=== PATIENT | male | born 1965 | race Caucasian/White ===

== ENCOUNTER 2019-03-05 07:16 | Emergency (ER) | payer OTHER ==
[~2019-03-05] VITALS: Ht 182.9 cm; Wt 93.0 kg
[2019-03-05 07:24] VITALS: BP 157/94
== END 2019-03-05 07:49 | disposition home or self-care (01) ==
LOC: ER 07:16
DX: Z48.01 Encounter for change or removal of surgical wound dressing (principal); M67.441 Ganglion, right hand

== ENCOUNTER 2019-11-30 00:47 | Inpatient (IN) | payer OTHER ==
[~2019-11-30] VITALS: Ht 180.3 cm; Wt 93.4 kg
[2019-11-30] MEDS ORDERED: ONDANSETRON HCL 4 MG/2 ML VIAL ONE (01:15)
[2019-11-30] MEDS ORDERED: MORPHINE SULFATE 4 MG/ML SYR/VIAL ONE (01:15)
[2019-11-30] MEDS ORDERED: MORPHINE SULF INJ 2 MG/ML SYRINGE 1ML ONE (01:15)
[2019-11-30] MEDS ORDERED: ASPirin-EC 81 mg tab PO ONE (01:16)
[2019-11-30 01:20] LABS: INR 1.06 (0.9-1.15); Partial Thromboplastin Time 24.3 sec (23.0-31.2)
[2019-11-30 01:21] LABS: Basophils # (auto) 0 10 ^3/uL (0-0.2); Basophils % (auto) 0.1 % (0.0-2.0); Eosinophils # (auto) 0 10 ^3/uL (0-0.8); Hematocrit 48.1 % (41.0-53.0); Hemoglobin 16.6 g/dL (13.5-17.5); Lymphocytes # (auto) 1.8 10 ^3/uL (0.4-5.4); Lymphocytes % (auto) 13.2 % (10.0-50.0); Mean Corpuscular Hemoglobin 32.2 pg (28.0-32.0); Mean Corpuscular Hgb Conc. 34.5 g/dL (32.0-36.0); Mean Corpuscular Volume 93.2 fL (80.0-100.0); Monocytes # (auto) 1.7 10 ^3/uL (0-1.3); Monocytes % (auto) 12.5 % (0.0-12.0); Neutrophils % (auto) 74.2 % (37.0-80.0); Nucleated Red Blood Cells % 0.1 %; Platelet Count (auto) 297 10^3/uL (140-450); Red Blood Cells 5.16 10^6/uL (4.5-5.90); Red Cell Distribution Width 12.7 % (11.8-14.3); White Blood Cell 13.4 10^3/uL (4.4-10.8)
[2019-11-30 01:26] LABS: Alanine Aminotransferase 39 U/L (16-61); Albumin 3.9 g/dL (3.4-5.0); Anion Gap 17 (5-15); Aspartate Aminotransferase 40 U/L (15-37); BUN/Creatinine Ratio 8.2; Blood Urea Nitrogen 8 mg/dL (7-18); Calcium 8.6 mg/dL (8.5-10.1); Carbon Dioxide 21 mmol/L (21-32); Chloride 96 mmol/L (98-107); GFR African American 102 mL/min; GFR Non-African American 84 mL/min; Glucose 160 mg/dL (74-106); Potassium 3.6 mmol/L (3.5-5.1); Sodium 134 mmol/L (136-145)
[2019-11-30] MEDS ORDERED: LORazepam 2MG/ML-1ML VIAL IV ONE ×3 (01:30→04:30)
[2019-11-30] MEDS ORDERED: NITROGLYCERIN 0.4MG/HR TOPICAL PATCH TD ONE ×2 (01:30→01:31)
[2019-11-30] MEDS ORDERED: SODIUM CHLORIDE 0.9% 1,000 ML IVB ONE (01:30)
[2019-11-30] MEDS ORDERED: MORPHINE SULFATE 4 MG/ML SYR/VIAL IV ONE (01:30)
[2019-11-30] MEDS ORDERED: ONDANSETRON HCL 4 MG/2 ML VIAL IV ONE ×2 (01:30→03:45)
[2019-11-30 01:31] LABS: Alkaline Phosphatase 36 U/L (45-117); Bilirubin, Total 0.9 mg/dL (0.2-1.0); Total Protein 7.6 g/dL (6.4-8.2)
[2019-11-30 03:38] LABS: Amphetamine Screen, Urine NEGATIVE (NEGATIVE); Barbiturate Scree,Urine NEGATIVE (NEGATIVE); Benzodiazephine Screen, Urine NEGATIVE (NEGATIVE); Cannabinoid Screen, Urine NEGATIVE (NEGATIVE); Cocaine Screen, Urine NEGATIVE (NEGATIVE); Opiate Scree,Urine POSITIVE (NEGATIVE); Phencyclidine Screen, Urine NEGATIVE (NEGATIVE)
[2019-11-30] MEDS ORDERED: NITROGLYCERIN 0.4 MG SL TAB SL PRN (05:45)
[2019-11-30] MEDS ORDERED: DOCUSATE SOD 100 MG CAP PO PRN (05:45)
[2019-11-30] MEDS ORDERED: FOLIC ACID 1 MG, MULTIPLE VITAMIN 10 ML, MAGNESIUM SULF SDV 50% 8 MEQ, THIAMINE INJ 100... INJ SCH ×5 (05:45)
[2019-11-30] MEDS ORDERED: MORPHINE SULF INJ 2 MG/ML SYRINGE 1ML IV PRN (05:45)
[2019-11-30 06:26] LABS: Basophils # (auto) 0 10 ^3/uL (0-0.2); Basophils % (auto) 0.2 % (0.0-2.0); Eosinophils # (auto) 0 10 ^3/uL (0-0.8); Hematocrit 44.1 % (41.0-53.0); Hemoglobin 15.2 g/dL (13.5-17.5); Lymphocytes # (auto) 0.8 10 ^3/uL (0.4-5.4); Lymphocytes % (auto) 6.1 % (10.0-50.0); Mean Corpuscular Hemoglobin 32.1 pg (28.0-32.0); Mean Corpuscular Hgb Conc. 34.4 g/dL (32.0-36.0); Mean Corpuscular Volume 93.2 fL (80.0-100.0); Monocytes # (auto) 1.5 10 ^3/uL (0-1.3); Monocytes % (auto) 12.4 % (0.0-12.0); Neutrophils # (auto) 10.1 10 ^3/uL (1.6-8.6); Neutrophils % (auto) 81.3 % (37.0-80.0); Nucleated Red Blood Cells % 0.1 %; Platelet Count (auto) 235 10^3/uL (140-450); Red Blood Cells 4.73 10^6/uL (4.5-5.90); Red Cell Distribution Width 12.8 % (11.8-14.3); White Blood Cell 12.4 10^3/uL (4.4-10.8)
[2019-11-30] MEDS: SODIUM CHLORIDE 0.9% 1,000 ML IV SCH ×2 (06:34→22:14)
[2019-11-30 06:48] LABS: Calcium 8.2 mg/dL (8.5-10.1); Potassium 4.3 mmol/L (3.5-5.1)
[2019-11-30 06:50] LABS: BUN/Creatinine Ratio 7.9
--- NOTE | 2019-11-30 08:35 | NUR ---
Received report from Javid RAMIREZ nurse re patient status
--- NOTE | 2019-11-30 08:55 | NUR ---
Telemetry admit from ER MARTINA POTTS admitted to Telemetry unit after SBAR received.admitted with chief c/o chest pain after heavy drinking,patient stated non radiating but hurts more when swallowing,feels like heart burn. Patient oriented to primary RN, unit, room, bed, and unit policies regarding patient care and visiting hours.vital signs taken BP 128/78,HR 101,RR 18,room air saturation 96%,Temp:97.5.Patient now on continuous telemetry monitoring, tele box #90 and telemetry reading on arrival to unit is ST 101.on room air,call light within reach,instructed to call for assistance.All questions and concerns addressed, patient verbalized understanding.
[2019-11-30] MEDS ORDERED: ASPirin 81 mg TAB PO SCH (10:00)
[2019-11-30] MEDS ORDERED: PANTOPRAZOLE 40 MG/10 ML VIAL INJ IV SCH (10:00)
[2019-11-30] MEDS: MULTIPLE VITAMIN TAB PO SCH (10:13)
[2019-11-30] MEDS: MORPHINE SULFATE 4 MG/ML SYR/VIAL IV PRN ×2 (10:13→18:52)
[2019-11-30] MEDS: amLODIPine BESYLATE 5 MG TAB PO SCH (10:13)
--- NOTE | 2019-11-30 10:20 | NUR ---
c/o chest pain 08/04,patient medicated with Mso4 2 mg IVP,see eMAR for detail
[2019-11-30] MEDS ORDERED: DIPH1TAB30 PO (11:39)
[2019-11-30 11:40] VITALS: BP 128/78
[2019-11-30 13:36] VITALS: BP 137/71
[2019-11-30] MEDS: hydrALAZINE HCL 25 MG TAB PO SCH ×2 (13:43→22:13)
[2019-11-30] MEDS ORDERED: SUCRALFATE 1 GM TAB PO ONE (13:45)
[2019-11-30] MEDS ORDERED: PANTOPRAZOLE 40 MG TAB PO ONE (13:45)
[2019-11-30] MEDS ORDERED: ENOXAPARIN SOD 40 MG/0.4 ML SYRINGE SC ONE (14:00)
[2019-11-30] MEDS ORDERED: cefTRIAXone 1GM/50ML D5W 50 ML IV ONE (14:00)
[2019-11-30 15:35] LABS: Urine Bacteria FEW /hpf (None Seen); Urine Blood Negative /uL (Negative); Urine Hyaline Cast FEW /lpf (0 - 2); Urine Mucus FEW (None Seen); Urine Specific Gravity 1.021 (1.001-1.035); Urine WBC 2 /hpf (0 - 3)
[2019-11-30] MEDS: SUCRALFATE 1 GM TAB PO SCH ×2 (16:38→22:14)
--- NOTE | 2019-11-30 16:53 | NUR ---
resting no distress no discomfort no c/o chest pain
[2019-11-30 17:27] VITALS: BP 117/74
--- NOTE | 2019-11-30 19:25 | NUR ---
Opening Shift Note Assumed care of patient, awake and alert. No S/S of distress/SOB or pain. Patient states that his chest pain has resolved after receiving the morphine earlier. Bed is locked in lowest position with call light within reach. Instructed on POC and to call for assist PRN, will continue to monitor for changes Q1hr and PRN.
[2019-11-30 22:00] VITALS: BP 138/89
--- NOTE | 2019-11-30 22:10 | NUR ---
HOSPITALIST PAGED Patient is requesting a sleeping aid. Will page hospitalist.
[2019-11-30] MEDS: PANTOPRAZOLE 40 MG TAB PO SCH (22:14)
--- NOTE | 2019-11-30 22:18 | NUR ---
HOSPITALIST RETURN CALL Notified the hospitalist about the patient's request for a sleeping aid. New order for Temazepam 15 mg HS has been received.
[2019-11-30] MEDS: TEMAZEPAM 15 MG CAP PO PRN (22:35)
[2019-12-01 05:00] VITALS: BP 138/92
[2019-12-01] MEDS: MORPHINE SULFATE 4 MG/ML SYR/VIAL IV PRN ×4 (05:07→18:32)
[2019-12-01] MEDS: ACETAMINOPHEN 325 MG TAB PO PRN ×2 (05:08→12:20)
[2019-12-01] MEDS: hydrALAZINE HCL 25 MG TAB PO SCH ×3 (06:00→20:59)
[2019-12-01 06:08] LABS: Basophils # (auto) 0 10 ^3/uL (0-0.2); Basophils % (auto) 0.1 % (0.0-2.0); Eosinophils # (auto) 0 10 ^3/uL (0-0.8); Hematocrit 39.9 % (41.0-53.0); Hemoglobin 14.1 g/dL (13.5-17.5); Mean Corpuscular Hemoglobin 32.8 pg (28.0-32.0); Mean Corpuscular Hgb Conc. 35.4 g/dL (32.0-36.0); Mean Corpuscular Volume 92.7 fL (80.0-100.0); Monocytes % (auto) 9.9 % (0.0-12.0); Neutrophils # (auto) 8.3 10 ^3/uL (1.6-8.6); Nucleated Red Blood Cells % 0.1 %; Platelet Count (auto) 184 10^3/uL (140-450); Red Cell Distribution Width 12.7 % (11.8-14.3); White Blood Cell 10.4 10^3/uL (4.4-10.8)
[2019-12-01] MEDS: SUCRALFATE 1 GM TAB PO SCH ×4 (06:15→20:59)
[2019-12-01 06:26] LABS: Potassium 3.5 mmol/L (3.5-5.1)
[2019-12-01 06:34] LABS: Albumin 3.2 g/dL (3.4-5.0); BUN/Creatinine Ratio 12.7; Bilirubin, Total 1.4 mg/dL (0.2-1.0); Calcium 8.3 mg/dL (8.5-10.1); Total Protein 6.5 g/dL (6.4-8.2)
--- NOTE | 2019-12-01 07:30 | NUR ---
Opening Shift Note Report received and assumed care of patient, awake and alert. , No S/S of distress/SOB but c/o chest pain pain while eating breakfast. Instructed on POC and nursing routines , call light within reach patient reminded instructed to call for assistance,patient verbalized understanding.will continue to monitor for changes Q1hr and PRN
[2019-12-01 09:00] VITALS: BP 151/98
[2019-12-01] MEDS: cefTRIAXone 1GM/50ML D5W 50 ML IV SCH (09:13)
[2019-12-01] MEDS: FOLIC ACID 1 MG TAB PO SCH (09:14)
[2019-12-01] MEDS: amLODIPine BESYLATE 5 MG TAB PO SCH (09:14)
[2019-12-01] MEDS: PANTOPRAZOLE 40 MG TAB PO SCH ×2 (09:15→20:59)
[2019-12-01] MEDS: THIAMINE HCL 100 MG TAB PO SCH (09:15)
[2019-12-01] MEDS: MULTIPLE VITAMIN TAB PO SCH (09:15)
[2019-12-01] MEDS: ENOXAPARIN SOD 40 MG/0.4 ML SYRINGE SC SCH (09:16)
--- NOTE | 2019-12-01 09:50 | NUR ---
MD VISIT HERE TO SEE AND EXAMINED PATIENT,STATED WILL PLAN SCOPE ONCE CARDIAC CLEAR
--- NOTE | 2019-12-01 10:00 | NUR ---
C/O CHEST PAIN AFTER EATING BREAKFAST REQUESTED PAIN MEDICATION MORPHINE 2 MG IVP GIVEN SEE eMAR
--- NOTE | 2019-12-01 12:15 | NUR ---
MD VISIT DR. SOSA HERE TO SEE AND EXAMINED PATIENT,UPDATED WITH PATIENT STATUS,K+3.5,C/O CHEST PAIN WHEN SWALLOWING SOLID FOOD AND CLARIFIED ORDER FOR BANANA BAG,RECEIVED ORDERS,SEE ORDERS WRITTEN.
--- NOTE | 2019-12-01 12:20 | NUR ---
C/O HEAD ACHE REQUESTED PAIN MEDICATION TYLENOL GIVEN SEE eMAR
[2019-12-01] MEDS ORDERED: POTASSIUM CHL 20 Meq TABLET PO ONE (12:30)
[2019-12-01 13:00] VITALS: BP 148/103
[2019-12-01] MEDS ORDERED: MAGNESIUM SULFATE 1GM/100ML 100 ML IV ONE (13:00)
[2019-12-01 13:21] LABS: Cholesterol 126 mg/dL (< 200); Triglycerides 121 mg/dL (< 150)
[2019-12-01 13:24] LABS: HDL Cholesterol 55 mg/dL (40-59); LDL Cholesterol 58 mg/dL (< 100)
--- NOTE | 2019-12-01 14:26 | NUR ---
C/O CHEST PAIN AFTER REQUESTED PAIN MEDICATION MORPHINE 2 MG IVP GIVEN SEE eMAR
[2019-12-01 16:42] VITALS: BP 146/99
--- NOTE | 2019-12-01 19:30 | NUR ---
Opening Shift Note Assumed care of patient, awake and alert. No S/S of distress/SOB or pain. Watching TV and talking to nurse about his hx of playing baseball. Bed in low position; call light within reach of pt. Insructed on POC and to call for assist PRN; this RN will continue to monitor for changes Q1hr and PRN.
[2019-12-01] MEDS: TEMAZEPAM 15 MG CAP PO PRN (21:00)
[2019-12-01] MEDS: LORazepam 2MG/ML-1ML VIAL IV PRN (21:16)
[2019-12-01 21:56] VITALS: BP 156/105
[2019-12-01 23:15] VITALS: BP 149/98
[2019-12-02] MEDS: SODIUM CHLORIDE 0.9% 1,000 ML IV SCH ×3 (03:00→16:00)
[2019-12-02] MEDS: ACETAMINOPHEN 325 MG TAB PO PRN ×2 (04:03→04:44)
[2019-12-02] MEDS: ONDANSETRON HCL 4 MG/2 ML VIAL IV PRN ×2 (04:04→21:18)
[2019-12-02] MEDS: MORPHINE SULFATE 4 MG/ML SYR/VIAL IV PRN ×4 (04:04→21:18)
--- NOTE | 2019-12-02 04:46 | NUR ---
Pt sleeping after prev. receiving Tylenol and Morphine for throbbing H/A and Zofran for nausea. Lab here.
[2019-12-02 05:00] VITALS: BP 149/88
[2019-12-02] MEDS: hydrALAZINE HCL 25 MG TAB PO SCH ×3 (06:00→22:11)
[2019-12-02] MEDS: SUCRALFATE 1 GM TAB PO SCH ×4 (06:48→22:11)
[2019-12-02 09:00] VITALS: BP 165/97
--- NOTE | 2019-12-02 09:45 | NUR ---
Dr. Rodrigues at bed side, patient to be prep'd for AM procedure
--- NOTE | 2019-12-02 10:43 | NUR ---
Dr. Rodriguez at bed side, discussing POC with patient. New orders received, read back and verified. Will implement. Refer to order HX.
[2019-12-02] MEDS: FOLIC ACID 1 MG TAB PO SCH (10:47)
[2019-12-02] MEDS: cefTRIAXone 1GM/50ML D5W 50 ML IV SCH (10:47)
[2019-12-02] MEDS: THIAMINE HCL 100 MG TAB PO SCH (10:48)
[2019-12-02] MEDS: MULTIPLE VITAMIN TAB PO SCH (10:48)
[2019-12-02] MEDS: amLODIPine BESYLATE 5 MG TAB PO SCH (10:48)
[2019-12-02] MEDS: PANTOPRAZOLE 40 MG TAB PO SCH ×2 (10:48→22:15)
[2019-12-02] MEDS: ENOXAPARIN SOD 40 MG/0.4 ML SYRINGE SC SCH (10:49)
[2019-12-02] MEDS: FOLIC ACID 1 MG, MULTIPLE VITAMIN 10 ML, MAGNESIUM SULF SDV 50% 8 MEQ, THIAMINE INJ 100... INJ SCH ×5 (12:44)
[2019-12-02 13:00] VITALS: BP 153/99
--- NOTE | 2019-12-02 13:42 | NUR ---
IN HOUSE COVID SWAB COLLECTED AND WALKED DOWN TO LAB PER PROTOCOL
[2019-12-02 16:55] VITALS: BP 140/91
[2019-12-02 22:00] VITALS: BP 141/92
[2019-12-02] MEDS: LORazepam 2MG/ML-1ML VIAL IV PRN (22:11)
[2019-12-02] MEDS: TEMAZEPAM 15 MG CAP PO PRN (22:12)
[2019-12-03] MEDS: MORPHINE SULFATE 4 MG/ML SYR/VIAL IV PRN ×4 (02:05→20:10)
[2019-12-03] MEDS: ONDANSETRON HCL 4 MG/2 ML VIAL IV PRN (02:05)
[2019-12-03 05:00] VITALS: BP 145/93
[2019-12-03] MEDS: hydrALAZINE HCL 25 MG TAB PO SCH ×3 (06:00→21:57)
[2019-12-03] MEDS: SUCRALFATE 1 GM TAB PO SCH ×4 (06:34→21:56)
--- NOTE | 2019-12-03 07:15 | NUR ---
Opening Shift Note Report received and assumed care of patient, awake and alert. , No S/S of distress/SOB INSTRUCTED ON POC. PATIENT VERBALIZED understanding.will continue to monitor for changes Q1hr and PRN
[2019-12-03] MEDS ORDERED: LIDOCAINE VISCOUS 2% 15ML UD ONE (08:55)
[2019-12-03] MEDS ORDERED: diphenhdrAMINE HCL 50 MG/1 ML VL ONE (08:55)
[2019-12-03] MEDS ORDERED: SODIUM CHLORIDE LOCK 10 ML ONE (08:56)
[2019-12-03 09:00] VITALS: BP 132/86
[2019-12-03] MEDS: cefTRIAXone 1GM/50ML D5W 50 ML IV SCH (09:02)
[2019-12-03] MEDS: FOLIC ACID 1 MG TAB PO SCH (09:06)
[2019-12-03] MEDS: THIAMINE HCL 100 MG TAB PO SCH (09:07)
[2019-12-03] MEDS: MULTIPLE VITAMIN TAB PO SCH (09:07)
[2019-12-03] MEDS: ENOXAPARIN SOD 40 MG/0.4 ML SYRINGE SC SCH (09:07)
[2019-12-03] MEDS: fentaNYL CITRATE 100 MCG/2 ML VL ONE ×2 (09:55→09:58)
[2019-12-03] MEDS: MIDAZOLAM HCL 5 MG/ML-1ML VIAL ONE ×2 (09:55→09:58)
--- NOTE | 2019-12-03 09:56 | NUR ---
PT BROUGHT DOWN TO PRE-OP FOR PROCEDURE NO COMPLAINTS OR S/S OF DISTRESS NOTED AT THIS TIME Addendum: 12/03/19 at 1011 by DIANELYS TATUM RN RN INCORRECT TIME TIME WAS 0935
--- NOTE | 2019-12-03 10:19 | NUR ---
ROUNDING MD [facility] S[facility]A AT BEDSIDE. ALL QUESTIONS AND CONCERNS ADDRESSED AT THIS TIME.
--- NOTE | 2019-12-03 10:39 | NUR ---
PATIENT BACK TO UNIT FROM PROCEDURE NO S/S OF DISTRESS OR COMPLAINTS AT THIS TIME. WILL CONTINUE TO MONITOR
[2019-12-03] MEDS: amLODIPine BESYLATE 5 MG TAB PO SCH (10:55)
[2019-12-03] MEDS: PANTOPRAZOLE 40 MG TAB PO SCH ×2 (10:55→21:56)
[2019-12-03 13:00] VITALS: BP 133/94
[2019-12-03] MEDS ORDERED: AMLO10TA13 PO (13:32)
[2019-12-03] MEDS ORDERED: HYDR12.56 PO (13:33)
[2019-12-03] MEDS ORDERED: SUCR1TAB PO (13:34)
[2019-12-03] MEDS ORDERED: PANT40T PO (13:34)
[2019-12-03] MEDS ORDERED: POTA10TA51 PO (13:37)
--- NOTE | 2019-12-03 13:48 | NUR ---
PAGED MD SOSA PER PATIENT REQUEST HE WOULD LIKE TO STAY ONE MORE NIGHT DUE TO HIM STILL "FEELING A BUT DIZZY" FROM THE PROCEDURE AWAITING CALL BACK
[2019-12-03] MEDS: FOLIC ACID 1 MG, MULTIPLE VITAMIN 10 ML, MAGNESIUM SULF SDV 50% 8 MEQ, THIAMINE INJ 100... INJ SCH ×5 (13:51)
[2019-12-03 14:31] VITALS: BP 139/102
--- NOTE | 2019-12-03 14:34 | NUR ---
MD RETURNED PAGE PER IT IS OKAY TO HOLD DISCHARGE UNTIL TOMORROW MORNING
[2019-12-03 17:00] VITALS: BP 139/79
[2019-12-03] MEDS: SODIUM CHLORIDE 0.9% 1,000 ML IV SCH (17:05)
--- NOTE | 2019-12-03 19:31 | NUR ---
Opening Shift Note Assumed care of patient after receiving report from ZBIGNIEW Scanlon. Patient is awake and alert with no S/S of distress/SOB, pain is manageable. Call light within reach, bed in lowest locked position x2 side rails, HOB semi fowlers. Instructed on POC and to call for assist PRN, will continue to monitor for changes Q1hr and PRN.
[2019-12-03] MEDS: TEMAZEPAM 15 MG CAP PO PRN (21:57)
[2019-12-03 22:21] VITALS: BP 139/96
[2019-12-04] MEDS: MORPHINE SULFATE 4 MG/ML SYR/VIAL IV PRN ×3 (02:38→12:12)
[2019-12-04] MEDS: LORazepam 2MG/ML-1ML VIAL IV PRN (04:59)
[2019-12-04 05:00] VITALS: BP 148/91
[2019-12-04] MEDS: hydrALAZINE HCL 25 MG TAB PO SCH (06:29)
[2019-12-04] MEDS: SUCRALFATE 1 GM TAB PO SCH ×2 (06:29→12:11)
--- NOTE | 2019-12-04 07:38 | NUR ---
Opening Shift Note Assumed care of patient, awake and alert. No S/S of distress/SOB patient currently complaining of chest pain 8/10 everytime he swallows. cardiac has already assessed pain and states it is related to esophogeal problems. Will medicate per EMAR Instructed on POC and to call for assist PRN, will continue to monitor for changes Q1hr and PRN.
[2019-12-04] MEDS: cefTRIAXone 1GM/50ML D5W 50 ML IV SCH (08:26)
[2019-12-04] MEDS: MULTIPLE VITAMIN TAB PO SCH (08:26)
[2019-12-04] MEDS: FOLIC ACID 1 MG TAB PO SCH (08:26)
[2019-12-04] MEDS: THIAMINE HCL 100 MG TAB PO SCH (08:27)
[2019-12-04] MEDS: PANTOPRAZOLE 40 MG TAB PO SCH (08:28)
[2019-12-04] MEDS: ENOXAPARIN SOD 40 MG/0.4 ML SYRINGE SC SCH (08:28)
[2019-12-04] MEDS: amLODIPine BESYLATE 5 MG TAB PO SCH (08:28)
[2019-12-04 09:00] VITALS: BP 160/100
[2019-12-04] MEDS: SODIUM CHLORIDE 0.9% 1,000 ML IV SCH (09:45)
[2019-12-04] MEDS: FOLIC ACID 1 MG, MULTIPLE VITAMIN 10 ML, MAGNESIUM SULF SDV 50% 8 MEQ, THIAMINE INJ 100... INJ SCH ×5 (12:00)
[2019-12-04 13:00] VITALS: BP 150/89
--- NOTE | 2019-12-04 13:11 | NUR ---
Discharge instructions given as ordered. Encourage to follow up with PMD as instructed. All questions and concerns addressed. Patient verbalized understanding. Medication reconciliation form completed and copy given to patient. . IV removed with catheter intact, pressure dressing applied. Telemetry unit returned to ICU. Patient taken to vehicle via wheelchair with all personal belongings, accompanied by staff and family member. No distress noted at time of departure.
== END 2019-12-04 13:13 | disposition home or self-care (01) | DRG 241 ==
LOC: EDBD 00:47 → ER 00:54 → TELE 00:55 → TELE-WESTW 09:02
PROVIDERS: ADMIT Nurse Practitioner Family; ATTEND Internal Medicine Nephrology
PROC: 0DB68ZX Excision of Stomach, Via Natural or Artificial Opening Endoscopic, Diagnostic (ICD-10-PCS; principal; 2019-12-03 09:51)
DX: K29.80 Duodenitis without bleeding (principal); R65.10 Systemic inflammatory response syndrome (SIRS) of non-infectious origin without acute organ dysfunction; E87.1 Hypo-osmolality and hyponatremia; E87.2 Acidosis; K21.9 Gastro-esophageal reflux disease without esophagitis; K29.70 Gastritis, unspecified, without bleeding; F10.232 Alcohol dependence with withdrawal with perceptual disturbance; Y90.5 Blood alcohol level of 100-119 mg/100 ml; I10 Essential (primary) hypertension; J98.11 Atelectasis; Z20.828 Contact with and (suspected) exposure to other viral communicable diseases; E66.3 Overweight; F41.9 Anxiety disorder, unspecified; F32.9 Major depressive disorder, single episode, unspecified; K20.90 Esophagitis, unspecified without bleeding; Z68.29 Body mass index [BMI] 29.0-29.9, adult
CPT/HCPCS: 36415; 43239; 71045; 80048; 80053; 80061; 80307; 80320; 81001; 83036; 83735; 83880; 84484; 85025; 85610; 85730; 87040; 93005; 93306; C9113; G0378; J0696; J2250; J2405

== ENCOUNTER 2020-11-26 16:31 | Emergency (ER) | payer OTHER ==
[~2020-11-26] VITALS: Ht 180.3 cm; Wt 83.9 kg
[~2020-11-26 16:31] MED LIST: PANT40T PO; SUCR1TAB PO
[2020-11-26 18:35] LABS: Basophils # (auto) 0 10 ^3/uL (0-0.2); Basophils % (auto) 0.3 % (0.0-2.0); Eosinophils # (auto) 0 10 ^3/uL (0-0.8); Eosinophils % (auto) 0.1 % (0.0-7.0); Hematocrit 41.9 % (41.0-53.0); Hemoglobin 14.1 g/dL (13.5-17.5); Lymphocytes # (auto) 1.3 10 ^3/uL (0.4-5.4); Lymphocytes % (auto) 14.4 % (10.0-50.0); Mean Corpuscular Hemoglobin 28.4 pg (28.0-32.0); Mean Corpuscular Hgb Conc. 33.6 g/dL (32.0-36.0); Mean Corpuscular Volume 84.3 fL (80.0-100.0); Monocytes % (auto) 10.9 % (0.0-12.0); Neutrophils # (auto) 6.6 10 ^3/uL (1.6-8.6); Neutrophils % (auto) 74.3 % (37.0-80.0); Nucleated Red Blood Cells % 0.1 %; Red Blood Cells 4.97 10^6/uL (4.5-5.90); Red Cell Distribution Width 12.7 % (11.8-14.3); White Blood Cell 8.9 10^3/uL (4.4-10.8)
[2020-11-26 18:38] LABS: Chloride 102 mmol/L (98-107); Potassium 3.8 mmol/L (3.5-5.1); Sodium 138 mmol/L (136-145)
[2020-11-26 18:44] LABS: Albumin 3.4 g/dL (3.4-5.0); Anion Gap 13 (5-15); BUN/Creatinine Ratio 13.4; Blood Urea Nitrogen 11 mg/dL (7-18); Calcium 8.8 mg/dL (8.5-10.1); Carbon Dioxide 23 mmol/L (21-32); GFR African American 125 mL/min; GFR Non-African American 103 mL/min; Glucose 115 mg/dL (74-106); Magnesium 1.6 mg/dL (1.6-2.6)
[2020-11-26 19:15] LABS: Alanine Aminotransferase 29 U/L (16-61); Alkaline Phosphatase 40 U/L (45-117); Aspartate Aminotransferase 31 U/L (15-37); Bilirubin, Total 0.5 mg/dL (0.2-1.0)
[2020-11-26 20:53] LABS: Urine Bacteria NONE SEEN /hpf (None Seen); Urine Blood Negative /uL (Negative); Urine Hyaline Cast FEW /lpf (0 - 2); Urine Mucus FEW (None Seen); Urine Specific Gravity 1.022 (1.001-1.035); Urine WBC 1 /hpf (0 - 3)
[2020-11-26 21:24] LABS: Amphetamine Screen, Urine POSITIVE (NEGATIVE); Barbiturate Scree,Urine NEGATIVE (NEGATIVE); Benzodiazephine Screen, Urine NEGATIVE (NEGATIVE); Cannabinoid Screen, Urine NEGATIVE (NEGATIVE); Opiate Scree,Urine NEGATIVE (NEGATIVE); Phencyclidine Screen, Urine NEGATIVE (NEGATIVE)
[2020-11-26 21:32] LABS: Cocaine Screen, Urine NEGATIVE (NEGATIVE)
[2020-11-27 00:45] VITALS: BP 148/98
== END 2020-11-27 00:51 | disposition home or self-care (01) ==
LOC: EDBD 16:31 → ER 16:32
DX: R07.89 Other chest pain (principal); R11.10 Vomiting, unspecified; R00.0 Tachycardia, unspecified; F41.9 Anxiety disorder, unspecified; F32.9 Major depressive disorder, single episode, unspecified; Z79.899 Other long term (current) drug therapy
CPT/HCPCS: 36415; 71045; 80053; 80307; 80320; 81001; 83735; 84443; 84484; 85025; 93005